=== PATIENT | female | born 1975 | race Caucasian/White ===

== ENCOUNTER 2018-05-15 17:38 | Emergency (ER) | payer SELFPAY ==
[~2018-05-15] VITALS: Ht 170.2 cm; Wt 81.7 kg
[2018-05-15 18:01] LABS: HEMATOCRIT 41.4 % (36.0-46.0); HEMOGLOBIN 14.5 G/DL (11.9-15.5); MCH 30.2 PG (29.0-34.0); MCV 86.3 FL (83-99); PLATELET COUNT 264 K/uL (156-360); RBC DIS.WIDTH-CV 12.3 % (11.8-14.6); RBC DIS.WIDTH-SD 38.8 % (39-53); WHITE BLOOD COUNT 5.5 K/uL (4.1-10.2)
[2018-05-15 18:12] LABS: ALBUMIN 4.8 g/dL (3.2-4.8); CHLORIDE 106 mEq/L (99-109); POTASSIUM 3.7 mEq/L (3.7-5.4); SODIUM 144 mEq/L (136-147)
[2018-05-15 18:14] LABS: GLUCOSE 56 mg/dL (70-99); TOTAL PROTEIN 7.6 g/dL (6.4-8.3)
[2018-05-15 18:16] LABS: TOTAL BILIRUBIN 0.7 mg/dL (0.0-1.0)
[2018-05-15 18:18] LABS: ALKALINE PHOSPHATASE 86 IU/L (3-129); CREATININE 0.8 mg/dL (0.6-1.3)
[2018-05-15 18:19] LABS: UREA NITROGEN (BUN) 9 mg/dL (9-23)
[2018-05-15 18:20] LABS: AST (GOT) 17 IU/L (2-34)
[2018-05-15 18:21] LABS: ALT (GPT) 13 IU/L (3-49); LIPASE 51 U/L (1.0-51.0)
[2018-05-15 18:28] LABS: QUANTITATIVE HCG < 4.0 MIU/ML
[2018-05-15 18:30] LABS: APPEARANCE CLEAR ((CLEAR)); BILIRUBIN NEGATIVE; BLOOD NEGATIVE; COLOR STRAW ((YELLOW)); GLUCOSE (STRIP) NEGATIVE; KETONES NEGATIVE; LEUKOCYTES NEGATIVE; NITRITE NEGATIVE; PROTEIN (STRIP) NEGATIVE; SPECIFIC GRAVITY 1.004 (1.000-1.030); UCUL ADDED? NO; UROBILINOGEN 0.2 MG/DL (0.2-1.0)
[2018-05-15 18:30] LABS: GFR ESTIMATE (CALCULATED) > 59 mL/min/
[2018-05-15 21:11] VITALS: BP 122/82
== END 2018-05-15 21:17 | disposition left against medical advice (07) ==
LOC: EME 17:38
DX: K56.600 Partial intestinal obstruction, unspecified as to cause (principal); R10.12 Left upper quadrant pain; Z98.84 Bariatric surgery status; Z90.49 Acquired absence of other specified parts of digestive tract; Z53.29 Procedure and treatment not carried out because of patient's decision for other reasons
CPT/HCPCS: 74177; 80053; 81003; 83690; 84702; 85027; 99281; 99285; J1200; J2270; J2405; J7030